=== PATIENT | female | born 2000 | race Caucasian/White ===

== ENCOUNTER → 2020-10-26 | Outpatient (CLI) | payer OTHER | LOC: HEART CORB 14:00 | DX: R07.89 Other chest pain (principal); F41.9 Anxiety disorder, unspecified; R00.2 Palpitations; R00.0 Tachycardia, unspecified | CPT/HCPCS: 93306 ==

== ENCOUNTER 2021-12-31 00:16 | Emergency (ER) | payer OTHER ==
[2021-12-31] MEDS ORDERED: PREDNISONE 50 M50 MG PO (03:06)
[2021-12-31] MEDS ORDERED: AMOX TR-K CLV1 EAC4 PO (03:06)
[2021-12-31] MEDS ORDERED: IBUPROFEN600 MG PO (03:06)
== END 2021-12-31 03:47 | disposition home or self-care (01) ==
LOC: ER1 00:16
DX: K04.7 Periapical abscess without sinus (principal); K02.9 Dental caries, unspecified
CPT/HCPCS: 99282